=== PATIENT | female | born 1965 | race Caucasian/White ===

== ENCOUNTER 2016-09-25 17:28 | Emergency (ER) | payer MEDICARE ==
[2016-11-02] MEDS ORDERED: LYRICA100 MG PO (13:44)
[2016-11-02] MEDS ORDERED: CYMBALTA30 MG PO (13:44)
[2016-11-02] MEDS ORDERED: BACLOFEN10 MG PO (13:45)
[2016-11-02] MEDS ORDERED: HYDROCODONE-APA1 TAB PO (13:45)
[2016-11-02] MEDS ORDERED: VALIUM5 MG PO (13:46)
[2016-11-04 10:54] VITALS: BMI 34.8
== END 2016-09-25 19:13 | disposition home or self-care (01) ==
LOC: D.ER 17:28
DX: M19.90 Unspecified osteoarthritis, unspecified site (principal); R51 Headache

== ENCOUNTER 2016-11-04 09:38 | Day surgery (SDC) | payer MEDICARE ==
[~2016-11-04] VITALS: Ht 160 cm; Wt 88.9 kg
[~2016-11-04 09:38] MED LIST: BACLOFEN10 MG PO; CYMBALTA30 MG PO; HYDROCODONE-APA1 TAB PO; LYRICA100 MG PO; VALIUM5 MG PO
[2016-11-04 10:21] LABS: BASOPHILS 0.7 % (0.0-2.0); EOSINOPHILS 2.9 % (0-7); HEMATOCRIT 39.9 % (36.0-48.0); HEMOGLOBIN 13.6 g/dL (12-16); IMMATURE GRANULOCYTES 0.2 % (0-5); LYMPHOCYTES 46.6 % (15-50); MCH 29.6 pg (26.0-34.0); MCHC 34.1 g/dL (31.0-37.0); MCV 86.9 fL (80.0-100.0); MEAN PLATELET VOLUME 11.7 fL (7.4-10.4); MONOCYTES 5.5 % (2-11); NEUTROPHILS 44.1 % (40-80); PLATELET COUNT 188 10x3/uL (130-400); RBC 4.59 10x6/uL (4.00-5.40); RDW 13.6 % (11.5-14.5); WBC 5.6 10x3/uL (4.8-10.8)
[2016-11-04 10:43] LABS: ANION GAP 11.3 mmol/L (8-16); CALCIUM 9.2 mg/dL (8.5-10.1); CARBON DIOXIDE 28.8 mmol/L (21.0-32.0); CREATININE - SERUM 0.9 mg/dL (0.6-1.3); POTASSIUM - SERUM 4.1 mmol/L (3.5-5.1)
[2016-11-04 10:54] VITALS: BP 135/75; Ht 160 cm; Wt 88.9 kg
--- NOTE | 2016-11-04 12:17 | HP ---
PATIENT: TYRESE ISLAS MEDICAL RECORD: [id number] ACCOUNT: [id number] LOCATION:[facility] : 67 ADMISSION DATE: 11/04/16 HISTORY AND PHYSICAL EXAMINATION HISTORY OF PRESENT ILLNESS: This patient is a 51-year-old white female with postmenopausal bleeding, cervical stenosis, scheduled for examination under anesthesia with endocervical curettage, hysteroscopy, endometrial biopsy, and endometrial curettage to evaluate her postmenopausal bleeding. An attempt at endometrial biopsy was performed in the office; however, cervical stenosis precluded entry for biopsy. CURRENT MEDICATIONS: Cymbalta, Lyrica, hydrocodone, Compound, diazepam and baclofen. PAST SURGICAL HISTORY: Breast reduction. She has also had back and neck surgery. MEDICAL PROBLEMS: Being treated for depression and anxiety. HABITS: No ethanol use. Positive for tobacco use. FAMILY HISTORY: Noncontributory. REVIEW OF SYSTEMS: No chest pain, no dyspnea. Positive for anxiety and depression symptoms. PHYSICAL EXAMINATION: VITAL SIGNS: Weight is 191 and blood pressure 150/100. HEENT: Grossly unremarkable. LUNGS: Clear. HEART: Regular rate and rhythm. BREASTS: Deferred. ABDOMEN: Soft and nontender. PELVIC: Reveals no atrophy or lesions externally. Vagina unremarkable. Cervix: a cervical polyp is visible, unable to pass a sound for measurement or endometrial biopsy because the cervix closed and stenotic uterus is 8-9 weeks' size without masses. Rectal confirms the above. EXTREMITIES: No cyanosis, clubbing or edema. NEUROLOGIC: Grossly intact. IMPRESSION: Postmenopausal bleeding, cervical stenosis. The patient with extreme anxiety and depression under treatment. PLAN: Examination under anesthesia with cervical dilatation, endocervical curettage, hysteroscopy with endometrial biopsy and curettage as indicated. I have discussed with the patient in the presence of her indications for surgery as well as risks in detail and answered all their questions. TRANSINT:[id number] Voice Confirmation ID: [id number] DOCUMENT ID: [id number] HISTORY AND PHYSICAL [id number] TYRESE ISLAS BRENDA MD at 1217 CC: [id number] DICTATION DATE: 11/03/16 1532 LABEL PRINTER: 11/03/16 1803 [facility] [address] [place] [address]
--- NOTE | 2016-11-04 15:09 | NUR ---
1345 UP TO BATHROOM VOIDED 1430 IV DC WITH CATHER TIP INTACT
--- NOTE | 2016-11-06 12:02 | OP ---
PATIENT NAME: TYRESE ISLAS MEDICAL RECORD: [id number] :67 LOCATION:[facility] ADMISSION DATE: SURGEON: SAIMA BLACKMAN MD DATE OF OPERATION: 11/04/2016 PREOPERATIVE DIAGNOSES: Postmenopausal bleeding, cervical stenosis, cervical polyp, vulvar nevus. POSTOPERATIVE DIAGNOSES: Postmenopausal bleeding, cervical stenosis, cervical polyp, vulvar nevus. PROCEDURES: Endocervical curettage, cervical dilatation, hysteroscopy, endometrial biopsy, endometrial curettage and removal of vulvar nevus. SURGEON: Saima Blackman MD. ANESTHESIA: General. FINDINGS: An 8 cm endometrial cavity depth cervical polyp. No endometrial polyps or lesions seen. Vulvar varicosities present and a single area consistent with a vulvar nevus excised. ESTIMATED BLOOD LOSS: Minimal. COMPLICATIONS OF PROCEDURE: None. OPERATIVE NOTE: The patient was taken to the OR and under adequate general anesthesia, prepped and draped in the usual manner for vaginal procedures with legs in floating boot Rob stirrups. Inspection of the vulva revealed small vulvar varicosities and an area on the right vulva consistent in appearance and texture with a vulvar nevus. The cervix was found to be mildly stenotic and a cervical polyp was visible. Cervical polyp was removed and sent as a separate specimen. Endocervical curettage was done and performed and sent as a separate specimen. The cervix was progressively dilated to accept the hysteroscope and hysteroscopic evaluation revealed the above-listed findings. Random biopsies were taken of a normal-appearing endometrial cavity. At the end of the procedure, all instruments were removed and endometrial curettage was performed and sent as a separate specimen. The vulvar nevus was then removed and sent as a separate specimen. At the end of procedure, bleeding was minimal. Nevus removal site was treated with silver nitrate for hemostasis. The patient went to the recovery area in good condition. TRANSINT:[id number] Voice Confirmation ID: [id number] DOCUMENT ID: [id number] SAIMA BLACKMAN MD at 1202 CC: [id number] DICTATION DATE: 11/04/16 1301 DELIVERY RN: 11/04/162003 [facility] 11/04/16 [place] [address]
== END 2016-11-04 14:45 | disposition home or self-care (01) ==
LOC: D.OPS 09:38 → D.PAN 12:00 → D.OPS 14:45
PROVIDERS: Obstetrics & Gynecology
DX: N95.0 Postmenopausal bleeding (principal); N88.2 Stricture and stenosis of cervix uteri; N84.1 Polyp of cervix uteri; I86.3 Vulval varices; L82.1 Other seborrheic keratosis; F32.9 Major depressive disorder, single episode, unspecified; F41.9 Anxiety disorder, unspecified; F17.200 Nicotine dependence, unspecified, uncomplicated; Z79.891 Long term (current) use of opiate analgesic; Z79.899 Other long term (current) drug therapy

== ENCOUNTER → 2017-05-01 18:24 | Outpatient (CLI) | payer MEDICARE ==
[2016-11-04 10:54] VITALS: BMI 34.8
== END | disposition home or self-care (01) ==
LOC: D.MAMMO 04-10 15:15
DX: Z12.31 Encounter for screening mammogram for malignant neoplasm of breast (principal)

== ENCOUNTER 2017-08-30 11:55 | Emergency (ER) | payer MEDICARE ==
[2016-11-04 10:54] VITALS: BMI 34.8
== END 2017-08-30 14:15 | disposition home or self-care (01) ==
LOC: D.ER 11:55
DX: S10.93XA Contusion of unspecified part of neck, initial encounter (principal); Y04.2XXA Assault by strike against or bumped into by another person, initial encounter; Y93.89 Activity, other specified; Y92.019 Unspecified place in single-family (private) house as the place of occurrence of the external cause

== ENCOUNTER 2017-09-25 07:33 | Emergency (ER) | payer MEDICARE ==
[2016-11-04 10:54] VITALS: BMI 34.8
== END 2017-09-25 08:50 | disposition home or self-care (01) ==
LOC: D.ER 07:33
DX: R42 Dizziness and giddiness (principal); F41.9 Anxiety disorder, unspecified; F32.9 Major depressive disorder, single episode, unspecified; F17.200 Nicotine dependence, unspecified, uncomplicated

== ENCOUNTER → 2018-03-23 14:14 | Outpatient (CLI) | payer MEDICARE ==
[2016-11-04 10:54] VITALS: BMI 34.8
== END | disposition home or self-care (01) ==
LOC: D.MRI 14:00
DX: M54.12 Radiculopathy, cervical region (principal)

== ENCOUNTER → 2018-07-25 17:36 | Outpatient (CLI) | payer MEDICARE ==
[2016-11-04 10:54] VITALS: BMI 34.8
== END | disposition home or self-care (01) ==
LOC: D.MAMMO 11:45
DX: Z12.31 Encounter for screening mammogram for malignant neoplasm of breast (principal)

== ENCOUNTER 2020-12-15 19:26 | Emergency (ER) | payer MEDICARE ==
[~2020-12-15] VITALS: Ht 160 cm; Wt 74.8 kg
[2020-12-15 19:29] VITALS: Ht 160 cm; Wt 74.8 kg
[2020-12-15 20:55] LABS: BILIRUBIN NEGATIVE (NEGATIVE); KETONE NEGATIVE (NEGATIVE); NITRITE NEGATIVE (NEGATIVE); UROBILINOGEN NORMAL mg/dL (< 2)
[2020-12-15 20:56] LABS: SQUAMOUS EPITHELIAL 0-5 HPF (0-4)
[2020-12-15 20:57] LABS: BACTERIA MODERATE HPF (NONE SEEN)
[2020-12-15] MEDS ORDERED: CYCLOBENZAPRINE10 MG PO (21:36)
[2020-12-15 22:08] VITALS: BP 121/88
== END 2020-12-15 22:09 | disposition home or self-care (01) ==
LOC: D.ER 19:26
PROVIDERS: Family Medicine
DX: S16.1XXA Strain of muscle, fascia and tendon at neck level, initial encounter (principal); M25.511 Pain in right shoulder; M25.512 Pain in left shoulder; M54.2 Cervicalgia; Y04.8XXA Assault by other bodily force, initial encounter; Y93.9 Activity, unspecified; Y92.9 Unspecified place or not applicable